=== PATIENT | male | born 1990 | race Caucasian/White ===

== ENCOUNTER 2019-01-10 01:55 | Emergency (ER) | payer BC ==
[2019-01-10] MEDS ORDERED: Sodium Chloride 0.9% 1000 ML 1,000 ML IV STA (02:18)
[2019-01-10] MEDS ORDERED: TORAdol 30 mg Injection IV ONE (02:19)
--- NOTE | 2019-01-10 02:22 | ERPHSYRPT ---
- History of Present Illness Time Seen by Provider: 01/10/19 02:20 Source: patient Exam Limitations: no limitations Physician History: 28-year-old white male arrives with complaint of a headache top of his head towards the front for 3 days she states he's had a fever no nausea no vomiting. Past medical history includes asthma Timing/Duration: day(s) Severity: moderate (3 days) Modifying Factors: Improves With: nothing Associated Symptoms: fever, headaches, No nausea, No vomiting, No abdominal pain , No shortness of breath, No heartburn, No diaphoresis, No cough, No chills, No chest pain, No loss of appetite, No malaise, No rash, No syncope, No seizure, No weakness Allergies/Adverse Reactions: bacitracin [From Neosporin ([id number])] Allergy (Verified 02/19/16 22:13) neomycin [From Neosporin ([id number])] Allergy (Verified 02/19/16 22:13) polymyxin B [From Neosporin ([id number])] Allergy (Verified 02/19/16 22:13) Home Medications: No Home Meds [No Home Meds] 02/19/16 [History] - Review of Systems Constitutional: Fever, No Chills Eyes: No Symptoms Ears, Nose, & Throat: No Symptoms, No Ear Pain, No Ear Discharge, No Hearing Changes, No Tinnitus, No Nose Pain, No Nose Congestion, No Nose Discharge, No Sinus Drainage, No Epistaxis, No Mouth Pain, No Mouth Swelling, No Loose Teeth, No Throat Pain, No Throat Swelling, No Hoarse, No Painful Swallowing, No Snoring , No Stridor Respiratory: No Cough, No Dyspnea Cardiac: No Chest Pain, No Edema, No Syncope Abdominal/Gastrointestinal: No Abdominal Pain, No Nausea, No Vomiting, No Diarrhea Genitourinary Symptoms: No Dysuria Musculoskeletal: No Back Pain, No Neck Pain Skin: No Rash Neurological: Headache, No Dizziness, No Focal Weakness, No Gait Changes, No Irritability, No Lethargy, No Paralysis, No Parasthesia, No Seizure, No Sensory Changes, No Speech Changes, No Tics, No Tremors, No Vertigo Psychological: No Symptoms Endocrine: No Symptoms All Other Systems: Reviewed and Negative - Past Medical History Pertinent Past Medical History: Yes Neurological History: No Pertinent History ENT History: No Pertinent History Cardiac History: No Pertinent History Respiratory History: Asthma Endocrine Medical History: No Pertinent History Musculoskeletal History: No Pertinent History GI Medical History: No Pertinent History History: No Pertinent History Psycho-Social History: No Pertinent History Male Reproductive Disorders: No Pertinent History - Past Surgical History Past Surgical History: No - Social History Smoking Status: Never smoker Exposure to second hand smoke: Yes Drug Use: none Patient Lives Alone: No Significant Family History: no pertinent family hx - Nursing Vital Signs Nursing Vital Signs: Initial Vital Signs Temperature 100.3 F 01/10/19 01:55 Pulse Rate 107 H 01/10/19 01:55 Respiratory Rate 18 01/10/19 01:55 Blood Pressure 140/85 01/10/19 01:55 O2 Sat by Pulse Oximetry 99 01/10/19 01:55 Pain Scale Pain Intensity 6 - Physical Exam General Appearance: mild distress, alert Eye Exam: PERRL/EOMI, eyes nml inspection Ears, Nose, Throat Exam: normal ENT inspection, TMs normal, pharynx normal, moist mucous membranes Neck Exam: normal inspection, non-tender, supple, full range of motion Respiratory Exam: normal breath sounds, lungs clear, No respiratory distress Cardiovascular Exam: regular rate/rhythm, normal heart sounds, normal peripheral pulses, capillary refill <2 sec Gastrointestinal/Abdomen Exam: soft, normal bowel sounds, No tenderness, No mass Back Exam: normal inspection, normal range of motion, No CVA tenderness, No vertebral tenderness Extremity Exam: normal inspection, normal range of motion, pelvis stable Neurologic Exam: alert, oriented x 3, cooperative, risk modeler II-XII nml as tested, normal mood/affect, nml cerebellar function, nml station & gait, sensation nml, No motor deficits Skin Exam: normal color, warm, dry, No rash SpO2 Interpretation: normal - Course Nursing assessment & vital signs reviewed: Yes - CT Exams Head CT Interpretation: Tele-radiologist Report (head CT: Impression: No intracranial abnormalities) Ordered Tests: Active Orders 24 hr Category Date Time Status IV Insertion STAT Care 01/10/19 02:17 Active HEAD WITHOUT CONTRAST [CT] Stat Exams 01/10/19 03:27 Taken BLOOD CULTURE Stat Lab 01/10/19 02:40 Received CBC W DIFF Stat Lab 01/10/19 02:30 Completed CMP Stat Lab 01/10/19 02:30 Completed UA W/RFX UR CULTURE Stat Lab 01/10/19 03:11 Completed Medication Summary Discontinued Medications Generic Name Dose Route Start Last Admin Trade Name Madi MILLER Reason Stop Dose Admin Sodium Chloride 1,000 mls @ 999 mls/hr 01/10/19 02:18 01/10/19 04:12 Sodium Chloride 0.9% 1000 Ml IV 01/10/19 03:18 Infused .Q1H1M STA Infusion Sodium Chloride Confirm 01/10/19 02:58 Sodium Chloride 0.9% 1000 Ml Administered 01/10/19 02:59 Dose 1,000 mls @ ud .ROUTE .STK-MED ONE Ketorolac Tromethamine 30 mg 01/10/19 02:19 01/10/19 02:59 Toradol 30 Mg Injection IV 01/10/19 02:20 30 mg STAT ONE Administration Ketorolac Tromethamine Confirm 01/10/19 02:58 Toradol 30 Mg Injection Administered 01/10/19 02:59 Dose 30 mg .ROUTE .STK-MED ONE Morphine Sulfate 4 mg 01/10/19 04:01 01/10/19 04:11 Morphine Sulfate 4 Mg Inj IV 01/10/19 04:02 4 mg STAT ONE Administration Morphine Sulfate Confirm 01/10/19 04:02 Morphine Sulfate 4 Mg Inj Administered 01/10/19 04:03 Dose 4 mg .ROUTE .STK-MED ONE Ondansetron HCl 4 mg 01/10/19 04:01 01/10/19 04:12 Zofran 4 Mg/2 Ml Vial IV 01/10/19 04:02 4 mg STAT ONE Administration Ondansetron HCl Confirm 01/10/19 04:01 Zofran 4 Mg/2 Ml Vial Administered 01/10/19 04:02 Dose 4 mg .ROUTE .STK-MED ONE Lab/Rad Data: Laboratory Result Diagrams 01/10/19 02:30 01/10/19 02:30 Laboratory Results 01/10/19 01/10/19 01/10/19 Range/Units 03:11 02:30 02:30 WBC (4.0-10.5) K/mm3 RBC (4.1-5.6) M/mm3 Hgb (12.5-18.0) gm/dl Hct (42-50) % MCV (78-100) fl MCH (26-32) pg MCHC (32-36) g/dl RDW (11.5-14.0) % Plt Count (150-450) K/mm3 MPV (6-9.5) fl Gran % (36.0-66.0) % Eos # (Auto) (0-0.5) Absolute Lymphs (auto) (1.0-4.6) Absolute Monos (auto) (0.0-1.3) Lymphocytes % (24.0-44.0) % Monocytes % (0.0-12.0) % Eosinophils % (0.00-5.0) % Basophils % (0.0-0.4) % Absolute Granulocytes (1.4-6.9) Basophils # (0-0.4) Sodium 136 L (137-145) mmol/L Potassium 3.6 (3.5-5.1) mmol/L Chloride 103 (98-107) mmol/L Carbon Dioxide 23 (22-30) mmol/L Anion Gap 14.2 (5-15) MEQ/L BUN 10 (9-20) mg/dL Creatinine 0.95 (0.66-1.25) mg/dL Estimated GFR > 60.0 ML/MIN Glucose 121 H (74-106) mg/dL Calcium 8.7 (8.4-10.2) mg/dL Total Bilirubin 0.30 (0.2-1.3) mg/dL AST 34 (17-59) U/L ALT 32 (0-50) U/L Alkaline Phosphatase 50 (38-126) U/L Serum Total Protein 7.6 (6.3-8.2) g/dL Albumin 4.1 (3.5-5.0) g/dL Urine Color YELLOW (YELLOW) Urine Appearance CLEAR (CLEAR) Urine pH 5.0 (5-6) Ur Specific Shiro 1.018 (1.005-1.025) Urine Protein NEGATIVE (Negative) Urine Ketones NEGATIVE (NEGATIVE) Urine Blood SMALL (0-5) Daniel/ul Urine Nitrite NEGATIVE (NEGATIVE) Urine Bilirubin NEGATIVE (NEGATIVE) Urine Urobilinogen NEGATIVE (0-1) mg/dL Ur Leukocyte Esterase NEGATIVE (NEGATIVE) Urine WBC (Auto) NONE (0-5) /HPF Urine RBC (Auto) NONE SEEN (0-2) /HPF U Epithel Cells (Auto) NONE (FEW) /HPF Urine Bacteria (Auto) NONE SEEN (NEGATIVE) /HPF Urine Mucus (Auto) SLIGHT (NEGATIVE) /HPF Urine Culture Reflexed NO (NO) Urine Glucose NEGATIVE (NEGATIVE) mg/dL Group A Strep Antibody NEGATIVE (NEGATIVE) 01/10/19 Range/Units 02:30 WBC 6.2 (4.0-10.5) K/mm3 RBC 4.80 (4.1-5.6) M/mm3 Hgb 14.1 (12.5-18.0) gm/dl Hct 41.4 L (42-50) % MCV 86.3 (78-100) fl MCH 29.4 (26-32) pg MCHC 34.1 (32-36) g/dl RDW 13.2 (11.5-14.0) % Plt Count 184 (150-450) K/mm3 MPV 11.6 H (6-9.5) fl Gran % 62.1 (36.0-66.0) % Eos # (Auto) 0.04 (0-0.5) Absolute Lymphs (auto) 1.52 (1.0-4.6) Absolute Monos (auto) 0.79 (0.0-1.3) Lymphocytes % 24.4 (24.0-44.0) % Monocytes % 12.7 H (0.0-12.0) % Eosinophils % 0.6 (0.00-5.0) % Basophils % 0.2 (0.0-0.4) % Absolute Granulocytes 3.86 (1.4-6.9) Basophils # 0.01 (0-0.4) Sodium (137-145) mmol/L Potassium (3.5-5.1) mmol/L Chloride (98-107) mmol/L Carbon Dioxide (22-30) mmol/L Anion Gap (5-15) MEQ/L BUN (9-20) mg/dL Creatinine (0.66-1.25) mg/dL Estimated GFR ML/MIN Glucose (74-106) mg/dL Calcium (8.4-10.2) mg/dL Total Bilirubin (0.2-1.3) mg/dL AST (17-59) U/L ALT (0-50) U/L Alkaline Phosphatase (38-126) U/L Serum Total Protein (6.3-8.2) g/dL Albumin (3.5-5.0) g/dL Urine Color (YELLOW) Urine Appearance (CLEAR) Urine pH (5-6) Ur Specific Shiro (1.005-1.025) Urine Protein (Negative) Urine Ketones (NEGATIVE) Urine Blood (0-5) Daniel/ul Urine Nitrite (NEGATIVE) Urine Bilirubin (NEGATIVE) Urine Urobilinogen (0-1) mg/dL Ur Leukocyte Esterase (NEGATIVE) Urine WBC (Auto) (0-5) /HPF Urine RBC (Auto) (0-2) /HPF U Epithel Cells (Auto) (FEW) /HPF Urine Bacteria (Auto) (NEGATIVE) /HPF Urine Mucus (Auto) (NEGATIVE) /HPF Urine Culture Reflexed (NO) Urine Glucose (NEGATIVE) mg/dL Group A Strep Antibody (NEGATIVE) - Progress Progress: improved Progress Note: 01/10/19 04:35 Patient feeling better after Toradol 30 mg morphine 4 mg Zofran 4 mg and 1 L normal saline. Labs are all normal head CT normal. Will discharge - Departure Departure Disposition: Home Clinical Impression: Viral syndrome Headache Qualifiers: Headache type: unspecified Headache chronicity pattern: acute headache Intractability: not intractable Qualified Code(s): R51 - Headache Fever Qualifiers: Fever type: unspecified Qualified Code(s): R50.9 - Fever, unspecified Condition: Fair Critical Care Time: No Referrals: DOCTOR,NO FAMILY [Primary Care Provider] - Additional Instructions: Return home, rest, plenty of fluids. Tylenol every 4 hours as needed for pain or temperature greater than 100.5. Followup with your family symptoms no better in 24-48 hours worse or persist longer than 72 hours. Return for acute distress or for severe symptoms.
[2019-01-10 02:44] LABS: BASOPHIL % 0.2 % (0.0-0.4); Basophil (Absolute #) 0.01 (0-0.4); Eosinophil % 0.6 % (0.00-5.0); Eosinophil (Absolute #) 0.04 (0-0.5); Granulocyte Absolute (ANC) 3.86 (1.4-6.9); Granulocytes % 62.1 % (36.0-66.0); Hematocrit 41.4 % (42-50); Hemoglobin 14.1 gm/dl (12.5-18.0); Lymphocyte (Absolute #) 1.52 (1.0-4.6); Lymphocytes % 24.4 % (24.0-44.0); Mean Cell Volume 86.3 fl (78-100); Mean Corpuscular Hemoglobin 29.4 pg (26-32); Mean Corpuscular Hgb Concent. 34.1 g/dl (32-36); Mean Platelet Volume 11.6 fl (6-9.5); Monocyte (Absolute #) 0.79 (0.0-1.3); Monocytes % 12.7 % (0.0-12.0); Platelet Count 184 K/mm3 (150-450); Red Cell Distribution Width 13.2 % (11.5-14.0); White Blood Count 6.2 K/mm3 (4.0-10.5)
[2019-01-10 02:57] LABS: ALBUMIN 4.1 g/dL (3.5-5.0); ALKALINE PHOSPHATASE 50 U/L (38-126); ANION GAP 14.2 MEQ/L (5-15); BLOOD UREA NITROGEN 10 mg/dL (9-20); CHLORIDE 103 mmol/L (98-107); Calcium 8.7 mg/dL (8.4-10.2); Carbon Dioxide 23 mmol/L (22-30); Creatinine 1 0.95 mg/dL (0.66-1.25); Glucose 121 mg/dL (74-106); Potassium 3.6 mmol/L (3.5-5.1); SGOT/AST 34 U/L (17-59); SGPT/ALT 32 U/L (0-50); SODIUM 136 mmol/L (137-145); Total Protein 7.6 g/dL (6.3-8.2)
[2019-01-10] MEDS ORDERED: TORAdol 30 mg Injection ONE (02:58)
[2019-01-10] MEDS ORDERED: Sodium Chloride 0.9% 1000 ML 1,000 ML ONE (02:58)
[2019-01-10 03:16] LABS: Appearance CLEAR (CLEAR); Bilirubin NEGATIVE (NEGATIVE); Blood SMALL Ery/ul (0-5); Glucose NEGATIVE (NEGATIVE); Ketones NEGATIVE (NEGATIVE); Leukocyte Esterase NEGATIVE (NEGATIVE); Mucus SLIGHT /HPF (NEGATIVE); Nitrite NEGATIVE (NEGATIVE); Protein,Urine Dip NEGATIVE (Negative); Specific Gravity 1.018 (1.005-1.025); Urobilinogen NEGATIVE mg/dL (0-1)
[2019-01-10] MEDS ORDERED: Zofran 4 MG/2 ML VIAL ONE (04:01)
[2019-01-10] MEDS ORDERED: Zofran 4 MG/2 ML VIAL IV ONE (04:01)
[2019-01-10] MEDS ORDERED: MORPHINE SULFATE 4 MG INJ IV ONE (04:01)
[2019-01-10] MEDS ORDERED: MORPHINE SULFATE 4 MG INJ ONE (04:02)
[2019-01-10 04:30] LABS: Bacteria NONE SEEN /HPF (NEGATIVE); RBC NONE SEEN /HPF (0-2)
[2019-01-10 04:40] VITALS: BP 116/73; PULSE 89; O2SAT 94
--- NOTE | 2019-01-10 09:00 | XRAY ---
Indication: Fever/headache 4 days. Dizziness with standing. Multiple contiguous axial images obtained through the head without contrast. Comparison: None. Normal appearing brain parenchyma, ventricles, and bony calvarium. Visualized paranasal sinuses and mastoid air cells are clear. Impression: Normal CT head without contrast exam. Comment: Preliminary interpretation was made by [facility]. No discrepancy. CT DI 66.37
== END 2019-01-10 04:45 | disposition home or self-care (01) ==
LOC: ED 01:55
DX: B34.9 Viral infection, unspecified (principal); R50.9 Fever, unspecified
CPT/HCPCS: 36000; 36415; 70450; 80053; 81001; 85025; 87040; 87651; 96360; 96374; 96375; 99284; J1885; J2270; J2405